=== PATIENT | male | born 1990 | race Caucasian/White ===

== ENCOUNTER 2016-07-24 09:33 | Emergency (ER) | payer MEDICAID, OTHER ==
[~2016-07-24] VITALS: Ht 185.4 cm; Wt 93.4 kg
[2016-07-24] MEDS ORDERED: ALL10TAB27 PO (09:42)
[2016-07-24] MEDS ORDERED: SING10TA32 PO (09:42)
[2016-07-24] MEDS ORDERED: ADACEL/BOOSTRIX VACCINE (DIPHTH/PERTUSS/ACELL/TETANUS)0.5ML SYR (90715) IM ONE (11:00)
--- NOTE | 2016-07-24 11:24 | REP ---
Left ankle four views: Comparisons 05/17/2014. There is no fracture or dislocation. Mineralization joint spaces are normal. No calcifications or foreign bodies. The previous soft tissue edema noted laterally has resolved. Impression: Negative left ankle. Signed by Manuel Pandey MD 07/24/2016 11:16 A
[2016-07-24] MEDS ORDERED: KEFL500C7 PO (11:33)
[2016-07-24] MEDS ORDERED: IBUP600T26 PO (11:33)
[2016-07-24 11:50] VITALS: BP 147/80
== END 2016-07-24 11:52 | disposition home or self-care (01) ==
LOC: M ED 11:09
DX: S91.032A Puncture wound without foreign body, left ankle, initial encounter (principal); W45.8XXA Other foreign body or object entering through skin, initial encounter; Y92.89 Other specified places as the place of occurrence of the external cause; Y93.89 Activity, other specified; Y99.8 Other external cause status; Z79.899 Other long term (current) drug therapy; J45.909 Unspecified asthma, uncomplicated

== ENCOUNTER 2023-04-15 13:28 | Emergency (ER) | payer OTHER ==
[~2023-04-15] VITALS: Ht 185.4 cm; Wt 94.0 kg
[~2023-04-15 13:28] MED LIST: CETI-24 PO; IBUP-1022 PO; KEFL500C17 PO; MONT-5 PO
[2023-04-15] MEDS ORDERED: CYCLOBENZAPRINE 10MG TABLET PO ONE (15:30)
[2023-04-15] MEDS ORDERED: LIDOCAINE 5% (LIDODERM) PATCH TD ONE (15:30)
[2023-04-15] MEDS ORDERED: KETOROLAC TROMETHAMINE 10 MG TAB PO ONE (15:30)
[2023-04-15] MEDS ORDERED: CYCL-707 PO (16:04)
[2023-04-15] MEDS ORDERED: NAPR-837 PO (16:04)
[2023-04-15] MEDS ORDERED: LIDO5DIS41 TD (16:04)
[2023-04-15 16:11] VITALS: BP 152/78; TEMP 99.1; O2SAT 98
== END 2023-04-15 16:16 | disposition home or self-care (01) ==
LOC: M ED 13:28
DX: M54.16 Radiculopathy, lumbar region (principal); J45.909 Unspecified asthma, uncomplicated; F12.10 Cannabis abuse, uncomplicated; Z79.1 Long term (current) use of non-steroidal anti-inflammatories (NSAID); Z79.891 Long term (current) use of opiate analgesic; Z79.899 Other long term (current) drug therapy

== ENCOUNTER 2023-09-12 18:15 | Inpatient (IN) | payer OTHER ==
[~2023-09-12] VITALS: Ht 188 cm; Wt 88.5 kg
[~2023-09-12 18:15] MED LIST changes: +CYCL-707 PO; +LIDO5DIS41 TD; +NAPR-837 PO
[2023-09-12 19:00] LABS: HEMATOCRIT 42.8 % (42.0-52.0); HEMOGLOBIN 15.1 g/dl (13.5-17.5); MEAN CORPUSCULAR HEMOGLOBIN 31.9 pg (27.0-33.0); MEAN CORPUSCULAR HGB CONC 35.3 g/dl (32.0-36.5); MEAN CORPUSCULAR VOLUME 90.5 fl (80.0-96.0); PLATELET COUNT, AUTOMATED 279 10^3/uL (150-450); RED BLOOD COUNT 4.73 10^6/uL (4.30-6.10); WHITE BLOOD COUNT 9.3 10^3/uL (4.0-10.0)
[2023-09-12 19:23] LABS: ETHYL ALCOHOL (ETHANOL) < 0.003 % (0.000-0.010)
[2023-09-12 19:25] LABS: ALBUMIN 4.2 G/DL (3.2-5.2); ALKALINE PHOSPHATASE 49 U/L (46-116); ALT/SGPT 16 U/L (7.0-40); AST/SGOT 17 U/L (<34); BILIRUBIN,DIRECT 0.2 MG/DL (<0.4); BILIRUBIN,TOTAL 0.6 MG/DL (0.3-1.2); BLOOD UREA NITROGEN 12 MG/DL (9-23); CALCIUM LEVEL 9.7 MG/DL (8.5-10.1); CARBON DIOXIDE LEVEL 32 MMOL/L (20-31); CHLORIDE LEVEL 106 MMOL/L (98-107); CREATININE FOR GFR 1.06 MG/DL (0.70-1.30); GLOMERULAR FILTRATION RATE > 60.0 (>60); GLUCOSE, FASTING 77 MG/DL (60-100); POTASSIUM SERUM 4.1 MMOL/L (3.5-5.1); SALICYLATE LEVEL < 3.0 MG/DL (<30); SODIUM LEVEL 142 MMOL/L (136-145); TOTAL PROTEIN 6.8 G/DL (5.7-8.2)
[2023-09-12 19:27] LABS: THYROID STIMULATING HORMONE 1.529 uIU/ML (0.55-4.78)
[2023-09-12 20:18] LABS: AMPHETAMINES LEVEL URINE NEGATIVE (NEGATIVE)
[2023-09-12 20:19] LABS: BARBITURATES URINE NEGATIVE (NEGATIVE); BENZODIAZEPINES URINE NEGATIVE (NEGATIVE); COCAINE METABOLITE URINE NEGATIVE (NEGATIVE); METHADONE URINE NEGATIVE (NEGATIVE); OPIATES URINE NEGATIVE (NEGATIVE); PHENCYCLIDINE URINE NEGATIVE (NEGATIVE)
[2023-09-12 20:23] LABS: CANNABINOIDS URINE POSITIVE (NEGATIVE)
[2023-09-12] MEDS ORDERED: HOME MED LIST COMPLETE! XX SCH (22:30)
[2023-09-13] MEDS ORDERED: LIDOCAINE 5% (LIDODERM) PATCH TD ONE (09:20)
[2023-09-13] MEDS ORDERED: diphenhydrAMINE 25MG CAP PO PRN (15:20)
[2023-09-13] MEDS ORDERED: MOM 30ML SUSPENSION UDC PO PRN (15:20)
[2023-09-13] MEDS ORDERED: IBUPROFEN 400MG TAB PO PRN (15:20)
[2023-09-13] MEDS: NICOTINE 14 MG/24 HR TRANSDERMAL TD SCH (16:37)
[2023-09-13] MEDS: OLANZapine ORAL DISINTEGRATING TAB 5MG PO PRN (18:34)
[2023-09-14 06:20] VITALS: BP 156/90; TEMP 98.7; O2SAT 98
[2023-09-14] MEDS: OLANZapine 5 MG TAB PO SCH (09:55)
[2023-09-14 18:10] VITALS: BP 156/82; TEMP 98.2
[2023-09-15 05:58] VITALS: BP 156/92; TEMP 97.3; O2SAT 97
[2023-09-15] MEDS: OLANZapine 5 MG TAB PO SCH (08:23)
[2023-09-15 17:50] VITALS: BP 130/88; TEMP 98.4
[2023-09-15] MEDS: OLANZapine 10 MG TAB PO SCH (20:31)
[2023-09-15] MEDS: traZODone 50 MG TAB PO PRN (20:31)
[2023-09-16 06:23] VITALS: BP 146/92; TEMP 98.3; O2SAT 95
[2023-09-16] MEDS: OLANZapine 5 MG TAB PO ONE (12:09)
[2023-09-16 17:58] VITALS: BP 152/88; TEMP 98.4; O2SAT 96
[2023-09-16] MEDS: OLANZapine 10 MG TAB PO SCH (21:08)
[2023-09-17 06:14] VITALS: BP 150/92; TEMP 97.4; O2SAT 98
[2023-09-17 16:03] VITALS: BP 138/84; TEMP 98.4; O2SAT 96
[2023-09-17 18:55] VITALS: BP 128/86; TEMP 98.8; O2SAT 97
[2023-09-18 06:16] VITALS: BP 139/70; TEMP 97.8; O2SAT 100
[2023-09-18 15:19] VITALS: BP 139/70; TEMP 97.8; O2SAT 100
[2023-09-18 16:21] VITALS: BP 136/79; TEMP 98.4; O2SAT 98
[2023-09-19 06:20] VITALS: BP 122/74; TEMP 97.9; O2SAT 97
[2023-09-19 15:12] VITALS: BP 136/77; TEMP 97.7; O2SAT 100
[2023-09-20 06:17] VITALS: BP 139/87; TEMP 97.8; O2SAT 96
[2023-09-20] MEDS: OLANZapine 10 MG TAB PO ONE (09:30)
[2023-09-20 17:45] VITALS: BP 112/73; TEMP 98.3; O2SAT 98
[2023-09-21 06:27] VITALS: BP 143/81; TEMP 97.4; O2SAT 98
[2023-09-21] MEDS: OLANZapine 10 MG TAB PO SCH (08:01)
[2023-09-21 18:40] VITALS: BP 153/73; TEMP 97.6
[2023-09-22 06:23] VITALS: BP 131/74; TEMP 97.4; O2SAT 99
[2023-09-22 17:40] VITALS: BP 123/71; TEMP 97.7; O2SAT 97
[2023-09-23] MEDS: MAALOX 30 ML SUSP *UDC PO PRN (01:57)
[2023-09-23 06:28] VITALS: BP 128/70; TEMP 98.9; O2SAT 97
[2023-09-23 17:57] VITALS: BP 147/85; TEMP 98.4; O2SAT 98
[2023-09-24 06:16] VITALS: BP 98/56; TEMP 98.7
[2023-09-24] MEDS: ACETAMINOPHEN TAB 650MG DOSE (2X325MG) PO PRN (09:31)
[2023-09-24 15:49] VITALS: BP 131/69; TEMP 98.6; O2SAT 100
[2023-09-25 06:09] VITALS: BP 156/74; TEMP 98.2
[2023-09-25 15:43] VITALS: BP 128/77; TEMP 98.4; O2SAT 99
[2023-09-26 06:00] VITALS: BP 144/70; TEMP 98.4
[2023-09-26 16:19] VITALS: BP 132/79; TEMP 98.1; O2SAT 98
[2023-09-27 05:46] VITALS: BP 129/72; TEMP 97.9; O2SAT 99
[2023-09-27] MEDS ORDERED: HALO5TAB33 PO (08:41)
[2023-09-27] MEDS ORDERED: HALO10TA20 PO (08:41)
[2023-09-27] MEDS ORDERED: TRAZ-252 PO (08:41)
== END 2023-09-27 11:19 | disposition home or self-care (01) | DRG 751 ==
LOC: M ED 18:15 → M ED INP 09-13 15:19 → M PSY 09-13 17:44
PROVIDERS: ADMIT Student in an Organized Health Care Education/Training Program; ATTEND Student in an Organized Health Care Education/Training Program
DX: F29 Unspecified psychosis not due to a substance or known physiological condition (principal); F31.9 Bipolar disorder, unspecified; F12.90 Cannabis use, unspecified, uncomplicated; F17.200 Nicotine dependence, unspecified, uncomplicated

== ENCOUNTER → 2023-11-02 | Outpatient (REF) | payer OTHER, MEDICAID ==
[~2023-11-02] MED LIST changes: +HALO10TA20 PO; +HALO5TAB33 PO; +TRAZ-252 PO
[2023-11-02 19:03] LABS: BASO % 0.4 % (0.0-1.0); EOS # 0.5 10^3/uL (0.0-0.5); EOS % 6.1 % (0.0-3.0); HEMATOCRIT 42.7 % (42.0-52.0); HEMOGLOBIN 14.8 g/dl (13.5-17.5); LYMPH # 2.9 10^3/uL (1.5-5.0); LYMPH % 35.1 % (24.0-44.0); MEAN CORPUSCULAR HEMOGLOBIN 31.8 pg (27.0-33.0); MEAN CORPUSCULAR HGB CONC 34.7 g/dl (32.0-36.5); MEAN CORPUSCULAR VOLUME 91.8 fl (80.0-96.0); MONO # 0.5 10^3/uL (0.0-0.8); MONO % 5.4 % (2.0-8.0); NEUTROPHILS # 4.4 10^3/uL (1.5-8.5); NEUTROPHILS % 52.6 % (36.0-66.0); PLATELET COUNT, AUTOMATED 233 10^3/uL (150-450); RED BLOOD COUNT 4.65 10^6/uL (4.30-6.10); WHITE BLOOD COUNT 8.4 10^3/uL (4.0-10.0)
[2023-11-02 20:19] LABS: THYROID STIMULATING HORMONE 1.187 uIU/ML (0.55-4.78)
[2023-11-02 20:24] LABS: ALBUMIN 4.3 G/DL (3.2-5.2); ALKALINE PHOSPHATASE 47 U/L (46-116); ALT/SGPT 16 U/L (7.0-40); AST/SGOT 11 U/L (<34); BILIRUBIN,TOTAL 0.6 MG/DL (0.3-1.2); BLOOD UREA NITROGEN 9 MG/DL (9-23); CALCIUM LEVEL 9.5 MG/DL (8.5-10.1); CARBON DIOXIDE LEVEL 29 MMOL/L (20-31); CHLORIDE LEVEL 104 MMOL/L (98-107); CHOLESTEROL LEVEL 172 MG/DL (<200); CHOLESTEROL RISK RATIO 3.68 (<5); CREATININE FOR GFR 0.98 MG/DL (0.70-1.30); GLOMERULAR FILTRATION RATE > 60.0 (>60); GLUCOSE, FASTING 90 MG/DL (60-100); HDL CHOLESTEROL 46.7 MG/DL (>40); LDL CHOLESTEROL 109.9 MG/DL (<100); MAGNESIUM LEVEL 1.9 MG/DL (1.8-2.4); NON-HDL-C 125.3 MG/DL; POTASSIUM SERUM 4.3 MMOL/L (3.5-5.1); SODIUM LEVEL 139 MMOL/L (136-145); TOTAL 25(OH) VITAMIN D 29.8 NG/ML (20.0-100.0); TOTAL PROTEIN 7.1 G/DL (5.7-8.2); TRIGLYCERIDES LEVEL 77 MG/DL (<150)
[2023-11-02 20:46] LABS: HIV 1&2 SCREEN NEGATIVE (NEGATIVE)
[2023-11-02 20:53] LABS: HEPATITIS C VIRUS ABY INDEX 0.13 INDEX (<0.8)
== END ==
LOC: M LAB REF 17:33
PROVIDERS: ATTEND Nurse Practitioner Family
DX: E66.3 Overweight (principal); Z11.3 Encounter for screening for infections with a predominantly sexual mode of transmission; Z11.4 Encounter for screening for human immunodeficiency virus [HIV]; Z11.59 Encounter for screening for other viral diseases

== ENCOUNTER 2024-01-20 10:47 | Emergency (ER) | payer MEDICAID, OTHER ==
[~2024-01-20] VITALS: Ht 185.4 cm; Wt 99.2 kg
[2024-01-20] MEDS: propofoL 200 MG/20 ML VIAL IV.PROC PRN (13:29)
[2024-01-20] MEDS: NS 1,000 ML IV SCH (13:29)
[2024-01-20] MEDS ORDERED: TRAZ-186 PO (13:43)
[2024-01-20] MEDS ORDERED: HALO5TAB33 PO (13:43)
[2024-01-20] MEDS ORDERED: HOME MED LIST COMPLETE! XX SCH (13:55)
[2024-01-20 14:00] VITALS: BP 138/69; TEMP 97; O2SAT 100
== END 2024-01-20 14:10 | disposition home or self-care (01) ==
LOC: M ED 10:47
DX: S43.085A Other dislocation of left shoulder joint, initial encounter (principal); W19.XXXA Unspecified fall, initial encounter; Y92.009 Unspecified place in unspecified non-institutional (private) residence as the place of occurrence of the external cause; Y93.89 Activity, other specified; Y99.9 Unspecified external cause status; Z79.899 Other long term (current) drug therapy

== ENCOUNTER → 2024-01-20 | Outpatient (CLI) | payer OTHER, MEDICAID ==
[~2024-01-20] MED LIST changes: +TRAZ-186 PO
== END ==
LOC: M WUC 10:17
PROVIDERS: ATTEND Student in an Organized Health Care Education/Training Program
DX: S43.015A Anterior dislocation of left humerus, initial encounter (principal); Y93.9 Activity, unspecified; Y92.9 Unspecified place or not applicable

== ENCOUNTER → 2024-01-24 | Outpatient (CLI) | payer OTHER | LOC: M SOG 10:27 | PROVIDERS: ATTEND Orthopaedic Surgery | DX: M24.312 Pathological dislocation of left shoulder, not elsewhere classified (principal) ==

== ENCOUNTER 2024-02-22 13:43 | Outpatient (RCR) | payer OTHER | END 2024-02-26 | LOC: M PT 13:43 | PROVIDERS: ATTEND Orthopaedic Surgery | DX: M24.312 Pathological dislocation of left shoulder, not elsewhere classified (principal) ==

== ENCOUNTER 2024-03-01 14:33 | Outpatient (RCR) | payer OTHER | END 2024-03-28 | LOC: M PT 14:33 | PROVIDERS: ATTEND Orthopaedic Surgery | DX: M24.312 Pathological dislocation of left shoulder, not elsewhere classified (principal) ==

== ENCOUNTER → 2025-03-14 | Outpatient (CLI) | payer OTHER ==
[~2025-03-14] MED LIST changes: -IBUP-1022 PO; +IBUP600T42 PO; +LIDO1ADH93 TD; -LIDO5DIS41 TD
== END ==
LOC: M RAD 12:31
PROVIDERS: ATTEND Family Medicine Addiction Medicine
DX: M54.50 Low back pain, unspecified (principal); G89.29 Other chronic pain